=== PATIENT | female | born 1950 | race Two or more races ===

== ENCOUNTER 2022-09-20 09:58 | Outpatient (REF) | payer MEDICARE, MEDICAID, SELFPAY ==
[2022-09-20 11:43] LABS: Hematocrit 38.9 % (37.0-47.0); Hemoglobin 12.7 g/dl (12.0-16.0); Mean Corpuscular HGB Conc 32.6 g/dl (31.0-35.0); Mean Corpuscular Hemoglobin 28.8 pg (27.0-33.0); Mean Corpuscular Volume 88.2 fL (80.0-98.0); Mean Platelet Volume 11.8 fL (9.4-12.3); Platelet Count 203 X10*3/uL (160-400); Red Blood Count 4.41 X10*6/uL (4.20-5.50); White Blood Count 4.9 X10*3/uL (4.8-10.8)
[2022-09-20 12:23] LABS: Microalbum/Creatinine Ratio Ur 5.2 ug/mg cr
[2022-09-20 13:07] LABS: Alanine Aminotransferase 21 U/L (0-31); Alkaline Phosphatase 81 U/L (39-117); Anion Gap 13 (12-20); Aspartate Amino Transferase 23 U/L (5-31); Bilirubin Total 0.5 mg/dL (0.0-1.0); Blood Urea Nitrogen 18 mg/dL (9-16); Calcium 9.7 mg/dL (8.4-10.2); Carbon Dioxide 27 mmol/L (22-29); Chloride 105 mmol/L (96-108); Cholesterol 175 mg/dL; Estimated Glomerular Filt Rate 57; Glucose Fasting 117 mg/dL (60-99); HDL Cholesterol 43 mg/dL; LDL Cholesterol Calculated 114 mg/dl; Potassium 4.2 mmol/L (3.3-5.1); Sodium 141 mmol/L (135-145); Total Protein 7.7 g/dL (6.5-8.0); Triglycerides 90 mg/dL
[2022-09-20 13:19] LABS: TSH reflex Free T4 3.95 uIU/mL (0.32-4.0)
[2022-09-20 13:35] LABS: Folate 17.4 ng/mL (> or = 4.0); Vitamin B12 > 2000 pg/mL (200-900)
== END 2022-09-20 09:59 | disposition home or self-care (01) ==
LOC: HO.LAB 09:58
PROVIDERS: PCP Physician Assistant; Visit Provider Physician Assistant
DX: I10 Essential (primary) hypertension (principal); E53.8 Deficiency of other specified B group vitamins; Z78.9 Other specified health status; R79.89 Other specified abnormal findings of blood chemistry
CPT/HCPCS: 36415; 80053; 80061; 82043; 82607; 82746; 84443; 85027

== ENCOUNTER 2022-11-03 14:00 | Outpatient (RCR) | payer MEDICARE, MEDICAID, SELFPAY ==
--- NOTE | 2022-10-25 13:55 | MHC.PT.EP ---
[facility] [place] Office [place] Office [place] Office [address] Lizama [address] [phone] F: [phone] F: [phone] F: [phone] F: [phone] Physical Therapy Plan of Care Date of Evaluation: Date of Surgery: N/A Diagnosis: Unspecific thoracic, thoraculumbar, and lumbosacral intervertebral disc disorder Bilateral primary osteoarthritis of knee Assessment: Pt is a pleasant 72yo F who presents to PT with B knee and back pain. Her son is present for PT evaluation. She presents to PT with current impairments in pain, decreased ROM, soft tissue restrictions, decreased LE strength, impaired posture, decreased balance and impaired gait. She is limited functionally by walking, bending, prolonged sitting, and stairs. She is a good candidate for skilled PT in order to address current impairments to facilitate return to PLOF. She is recommended to be seen 2x/week for 4 weeks and will be reassessed at that time. 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 Manual therapy to restore motion and function. Therapeutic exercise to improve strength and flexibility. Neuromuscular re-education for posture and balance. Therapeutic activities to return to functional activities of daily living. Electronically signed by: Vandana Hernandez, PT, DPT Please sign and return to therapist. Thank you for your referral.
--- NOTE | 2023-01-11 11:48 | MHC.PT.DC ---
[facility] [place] Office [place] Office [place] Office [address] Joellen Lizama [address] [phone] F: [phone] F: [phone] F: [phone] F: [phone] Physical Therapy Discharge Report Diagnosis: Unspecific thoracic, thoraculumbar, and lumbosacral intervertebral disc disorder Bilateral primary osteoarthritis of knee Date of Surgery: N/A Date of Evaluation: 10/25/22 Date of Discharge: 01/11/23 Treatments to Date: 4 Cancellations to Date: No Shows to Date: Discharge Status: Discharge Summary: Pt was seen for skilled PT from 10/25/22-11/03/22. Her last attended appointment was 11/03/22. At last attended session she was provided updated HEP and bands. She cancelled her remaining appointments as she was going to be out of town. Her chart was held open for 30 days. Pt is being D/C from skilled PT as she has not attended or called to reschedule in > 30 days. Pt current level of function unknown at this time. Electronically signed by: Vandana Hernandez, PT, DPT Please sign and return to therapist. Thank you for your referral.
== END 2023-01-11 11:48 | disposition home or self-care (01) ==
LOC: HO.PT 14:00
PROVIDERS: PCP Physician Assistant; Visit Provider Physician Assistant
DX: M51.9 Unspecified thoracic, thoracolumbar and lumbosacral intervertebral disc disorder (principal); M17.0 Bilateral primary osteoarthritis of knee
CPT/HCPCS: 97110; 97162

== ENCOUNTER 2023-09-15 12:50 | Outpatient (AMB) | payer OTHER, MEDICAID, SELFPAY ==
--- NOTE | 2023-09-15 12:54 | A.OFFPC_ITS ---
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 Accompanied by: Son Allergies iodine Allergy (Severe, Verified 09/15/23 13:10) Anaphylaxis Medication List - Last Reconciled 09/15/23 by Chris Luna PA-C amlodipine 2.5 mg PO DAILY 90 days betamethasone dipropionate 0.05% 1 appl topical BID hydrochlorothiazide 12.5 mg PO DAILY 90 days irbesartan 150 mg PO DAILY 90 days levothyroxine (Synthroid) 25 mcg PO DAILY meloxicam 15 mg PO DAILY 30 days Tobacco use date assessed: 09/15/23 Fall risk assessment: No Falls in past year Last assessed Fall Risk: 09/15/23 Dental Screening Dental Screen Date: 09/15/23 Did you have a dental visit in the last 12 months?: Yes Did you have a dental problem in the last 6 months where you did not have access to dental care?: No Was dental information given to patient?: Patient has dentist HPI PE HPI Details Patient is a 73-year-old female here today for a routine annual physical Patient has a past medical history significant for osteoarthritis of the knee and shoulders, hypertension, vegetarian. .. HTN: Does monitor at home and has been mostly controlled on meds. Blood pressure today in office acceptable .. Impaired glucose metabolism: Most recent labs showing elevated fasting blood sugar 117. Today's A1c of 5.8. She will continue on lifestyle modifications and dietary modifications. . Polyarthralgia: Does have significant bilateral hand/ wrist, knees and shoulders arthritis that causes significant impairment in her activities of daily living. Family asking for [employer] your patient does use anti-inflammatory medication for pain. She does have some balance issues due to her bilateral knee osteoarthritis. She is interested in handicap placard due to her arthritis. At times does use a cane for balance. .. Colon cancer screening; needs colon cancer screening-willing to do Cologuard Mammogram: NEEDS MAMMOGRAM- declines Vaccines: Needs tetanus though declines, needs pneumonia vaccine though declines as well. Laboratory Tests 09/20/22 10:14 Fasting Glucose 117 H LDL Cholesterol, C alc 114 Vitamin B12 > 2000 H [facility] Social History (Updated 09/15/23 @ 13:16 by hCris Luna PA-C) Housing: House Alcohol intake: never Patient Tobacco Use Status: Never used Tobacco e-Cigarette/Vaping Use: Never Used service: No Current occupational status: retired Current occupation: [employer] Current occupational exposures/hazards: No Cognitive needs: No Hearing needs: No Vision needs: Yes Questionnaire PHQ-9 Over the last 2 weeks, how often have you been bothered by any of the following problems? 1. Little interest or pleasure in doing things: not at all 2. Feeling down, depressed, or hopeless: not at all 3. Trouble falling or staying asleep, or sleeping too much: not at all 4. Feeling tired or having little energy: not at all 5. Poor appetite or overeating: not at all 6. Feeling bad about yourself - or that you are a failure or have let yourself or your family down: not at all 7. Trouble concentrating on things, such as reading the newspaper or watching television: not at all 8. Moving or speaking so slowly that other people could have noticed. Or the opposite - being so fidgety or restless that you have been moving around a lot more than usual: not at all 9. Thoughts that you would be better off or of hurting yourself in some way: not at all Total score: 0 Depression Screening Interpretation: Negative Depression Screening Done: Yes 43279 - PHQ-9 Billing: Yes Source: Developed by Drs. Luis Vega, Megan Adame, Mikey Antonio and colleagues, with an educational cesar from [employer]. Thrive Questionnaire Date Thrive assessed: 09/15/23 I am a: Patient What is your living situation today?: I have a steady place to live Within the past 12 months, did the food you bought not last and you didn't have the money to get more?: Never true Within the past 12 months, did you worry whether your food would run out before you got money to buy more?: Never true Do you have trouble paying for medicines?: No Do you have trouble getting transportation to medical appointments?: No Do you have trouble taking care of your child, family member or friend?: No Do you have trouble with day-to-day activities such as bathing, preparing meals, shopping, managing finances, etc.?: No Are you currently unemployed and looking for a job?: No Are you interested in more education?: No Please select the resources that you would like help with: None Currently or been in a relationship where the following occur: no concerns reported THRIVE Score: 0 AUDIT C Alcohol Use Questionnaire (AUDIT-C) 1. How often do you have a drink containing alcohol?: Never 3. How often do you have six or more drinks on one occasion?: Never Total Score: 0 ROSIO-7 AMB Questionnaire ROSIO-7 Date ROSIO - 7 assessed: 09/15/23 Feeling nervous, anxious, or on edge: 0 = Not at all Not being able to stop or control worryin = Not at all Worrying too much about different things: 0 = Not at all Trouble relaxin = Not at all Being so restless that it is hard to sit still: 0 = Not at all Becoming easily annoyed or irritable: 0 = Not at all Feeling afraid as if something awful might happen: 0 = Not at all Total ROSIO-7 score (0-4 normal; 5-9 mild; 10-14 moderate; 15-21 severe): 0 Source: Developed by Drs. Luis Vega, Megan Adame, Mikey Antonio and colleagues, with an educational cesar from [employer]. ROSIO-7 Assessment Billing ROSIO-7 Assessment Tool: ROSIO-7 Assessment 30012 Review of Systems Const Denies body aches, Denies chills, Denies excessive sweating, Denies fatigue, Denies fever(s) and Denies headache(s) Eyes Denies blurry vision ENT Denies dysphagia, Denies vertigo, Denies dizziness, Denies headache(s), Denies hearing loss and Denies tinnitus Card Denies chest pain, Denies chest pain with activity, Denies syncope, Denies irregular heart rhythm and Denies dyspnea Resp Denies chest congestion, Denies cough, Denies hemoptysis, Denies dyspnea and Denies wheezing GI Denies abdominal pain, Denies melena, Denies hematochezia, Denies coffee ground emesis, Denies dysphagia, Denies diarrhea, Denies nausea and Denies vomiting Denies urinary frequency, Denies dysuria, Denies urinary hesitancy and Denies urinary urgency Musc Denies arthralgias, Denies limited range of motion, Denies muscle cramps and Denies muscle weakness Skin/Breast Denies rash and Denies skin ulcer Neuro Denies Abnormal speech present, Denies confusion, Denies vertigo, Denies dizziness, Denies syncope, Denies headache(s), Denies memory loss and Denies seizure-like activity Psych Denies anxiety, Denies confusion, Denies depression, Denies memory loss, Denies panic attacks and Denies paranoia Endo Denies excessive sweating, Denies fatigue, Denies flushing, Denies polydipsia and Denies polyuria Aller/Immun Denies wheezing Physical exam (Primary Care) Vital Signs: Last Vital Signs Pulse 69 09/15/23 12:56 BP 128/74 09/15/23 12:56 Pulse Ox 99 09/15/23 12:56 Oxygen Delivery Method Room Air 09/15/23 12:56 BMI result Body Mass Index 29.0 Tobacco/Smoking Status: Tobacco use Status Tobacco use date assessed 09/15/23 09/15/23 13:13 Patient Tobacco Use Status Never used Tobacco 09/15/23 13:16 e-Cigarette/Vaping Use Never Used 09/15/23 13:16 PHQ-9: PHQ-9 Score PHQ-9: Total score 0 09/15/23 13:13 Depression Screening Interpretation: Negative Thrive Assessment: Date of Thrive Assessment Date Thrive assessed 09/15/23 09/15/23 13:13 Currently or been in a relationship where the following occur: no concerns reported Const General: cooperative, comfortable, no acute distress, alert and awake; No confusion Orientation/consciousness: oriented to person, oriented to place, patient oriented x3 and No confusion HENMT Head: Yes normocephalic Ears: external ears normal and TM's normal bilaterally Face and sinus: No sinus tenderness Mouth: Normal oral and palatal mucosa present and tongue normal Teeth and gingiva: dentition normal and gingiva normal Throat: Yes posterior oropharynx normal, Yes tonsils normal and Yes uvula midline Eyes Conjunctivae: conjunctivae normal Sclerae: sclerae normal Pupils: Equal, round and reactive pupils present EOM: EOMs intact bilaterally Direct Ophthalmoscopy: No no photophobia Neck Neck: Yes no lymphadenopathy, No tender and Yes no JVD Thyroid: Thyroid normal Carotids: no bruits Chest Chest palpation & inspection: no tenderness Resp Effort & Inspection: normal respiratory effort, no audible wheezes, not labored and no stridor Auscultation: no crackles, no rales, no rhonchi and no wheezes Cardio Jugular venous distension: no JVD Rate: regular rate, not bradycardic and not tachycardic Rhythm: regular rhythm Bruits: no carotid bruits Peripheral pulses: Peripheral pulses 2+ throughout GI Inspection: Yes normal to inspection, No abdominal wall ecchymosis and No visible herniation Palpation (GI): Soft to palpation, nontender, no guarding, not rigid and No hepatosplenomegaly present Auscultation: normoactive bowel sounds General: Yes no CVA tenderness Back/Spine/Pelvis Back: no CVA tenderness and No back tenderness Cervical Spine: cervical ROM normal Thoracic/Lumbar Spine: thoracic and lumbar spine normal to inspection, straight leg raise negative bilaterally, No thoraco-lumbar ROM limited and No lumbar spinal tenderness Skin Lesions: no lesions Rashes: no rashes Wounds: no wounds Neuro General: oriented to person, oriented to place, patient oriented x3, CN's II-XI intact bilaterally and No confusion Cranial nerves: Yes Equal, round and reactive pupils present and Yes Normal accommodation reflex present Cognition (Neuro): normal cognition Speech: No Abnormal speech present Gait exam (Neuro): Normal gait present Motor exam (neuro): 5/5 motor strength present throughout Extrem Right upper extremity: full ROM; no cyanosis Left upper extremity: full ROM; no cyanosis Right lower extremity: no edema Left lower extremity: no edema Psych Appearance: grossly normal Mental Status: mental status grossly normal Affect: normal affect Attitude: cooperative Thought process: Normal thought process present Results AMB Hemoglobin A1c AMB Hemoglobin A1c 5.8 % Last Edit by ANSELMO Bowman on 09/15/23 13:20 Assessment and Plan Assessment & Plan (1) Annual physical exam: Code(s): Z00.00 - Encounter for general adult medical examination without abnormal findings (2) HTN (hypertension): Code(s): I10 - Essential (primary) hypertension Qualifiers: Hypertension type: primary hypertension Qualified Code(s): I10 - Essential (primary) hypertension Plan: Blood pressure today in office acceptable. Continues on for 3 different medications for blood pressure to which she reports has been managing her blood pressure well. Goal blood pressure be below 140/90 (3) Osteoarthritis: Code(s): M19.90 - Unspecified osteoarthritis, unspecified site Qualifiers: Osteoarthritis location: knee Osteoarthritis type: primary Laterality: bilateral Qualified Code(s): M17.0 - Bilateral primary osteoarthritis of knee Plan: Does have bilateral knee osteoarthritis causing her to have some balance impairment. She is willing to do physical therapy/. (4) Elevated fasting blood sugar: Code(s): R73.01 - Impaired fasting glucose Plan: Labs from [place] showing elevated in fasting blood sugar and A1c of 5.8. Not interested in medication at this time will continue working on lifestyle modifications. (5) Vegetarian diet: Code(s): Z78.9 - Other specified health status Plan: Will continue to follow vitamin B12 as patient is strict vegan. (6) Hypothyroidism: Code(s): E03.9 - Hypothyroidism, unspecified Qualifiers: Hypothyroidism type: unspecified Qualified Code(s): E03.9 - Hypothyroidism, unspecified Plan: She reports seeing a physician in [place]. Reports having an TSH of 5.8. She was placed on levothyroxine 25 mcg. Will continue to follow TSH. (7) Injury of right glenoid labrum: Code(s): S49.91XA - Unspecified injury of right shoulder and upper arm, initial encounter Plan: She reports in May injuring her right shoulder in the posterior aspect. She did get MRI that did show some glenoid fluid collection. She reports after the incident her range of motion was severely impaired though now is much better. She is interested in physical therapy. Orders: Orders AMB Hemoglobin A1c Today Z13.1 - Encounter for screening for diabetes mellitus TSH reflex Free T4 Today E03.9 - Hypothyroidism, unspecified Microalbumin, Random (w Creat) Today I10 - Essential (primary) hypertension Vitamin B12 and Folate Today E53.8 - Deficiency of other specified B group vitamins, Z78.9 - Other specified health status PT Evaluation and Treatment Today S49.91XA - Unspecified injury of right shoulder and upper arm, initial encounter [facility] [place]. Panel Fast Today I10 - Essential (primary) hypertension Complete Blood Count no Diff Today M17.0 - Bilateral primary osteoarthritis of knee Vitamin D 25-OH Total Today Z78.9 - Other specified health status Referrals Cologuard Test S49.91XA - Unspecified injury of right shoulder and upper arm, initial encounter, Z12.11 - Encounter for screening for malignant neoplasm of colon Patient Instructions: Goal: Blood pressure to remain below 140/90 Barriers: Adherence to physical activity . Coding Level of Care Code Est Pt Prev Care >65y(27916) Diagnoses Annual physical exam Z00.00 Primary hypertension I10 Hypertension type: primary hypertension Primary osteoarthritis of both knees M17.0 Osteoarthritis location: knee Osteoarthritis type: primary Laterality: bilateral Elevated fasting blood sugar R73.01 Vegetarian diet Z78.9 Hypothyroidism, unspecified type E03.9 Hypothyroidism type: unspecified Injury of right glenoid labrum S49.91XA Additional Codes ROSIO-7 Assessment Billing - ROSIO-7 Assessment Tool: ROSIO-7 Assessment 92604 ([id number])
[2023-09-15 12:56] VITALS: BP 128/74; PULSE 69; O2SAT 99; BMI 29.0
== END 2023-09-15 13:40 | disposition home or self-care (01) ==
PROVIDERS: PCP Physician Assistant; Visit Provider Physician Assistant
DX: Z00.00 Encounter for general adult medical examination without abnormal findings (principal); I10 Essential (primary) hypertension; M17.0 Bilateral primary osteoarthritis of knee; R73.01 Impaired fasting glucose; E03.9 Hypothyroidism, unspecified; S49.91XA Unspecified injury of right shoulder and upper arm, initial encounter
CPT/HCPCS: 83036; 99397

== ENCOUNTER 2023-09-16 10:10 | Outpatient (REF) | payer OTHER, MEDICAID, SELFPAY ==
[2023-09-16 10:58] LABS: Hematocrit 38.2 % (37.0-47.0); Hemoglobin 12.5 g/dl (12.0-16.0); Mean Corpuscular HGB Conc 32.7 g/dl (31.0-35.0); Mean Corpuscular Hemoglobin 28.7 pg (27.0-33.0); Mean Corpuscular Volume 87.6 fL (80.0-98.0); Mean Platelet Volume 11.5 fL (9.4-12.3); Platelet Count 207 X10*3/uL (160-400); Red Blood Count 4.36 X10*6/uL (4.20-5.50); Red Cell Distribution Width 13.6 % (11.0-16.0); White Blood Count 4.5 X10*3/uL (4.8-10.8)
[2023-09-16 12:01] LABS: Alanine Aminotransferase 22 U/L (0-31); Albumin Level 4.2 g/dL (3.5-5.0); Alkaline Phosphatase 74 U/L (39-117); Anion Gap 13 (12-20); Aspartate Amino Transferase 23 U/L (5-31); Bilirubin Total 0.6 mg/dL (0.0-1.0); Blood Urea Nitrogen 13 mg/dL (9-16); Calcium 9.6 mg/dL (8.4-10.2); Carbon Dioxide 25 mmol/L (22-29); Chloride 108 mmol/L (96-108); Estimated Glomerular Filt Rate > 60; Glucose Fasting 112 mg/dL (60-99); Sodium 142 mmol/L (135-145); Total Protein 7.8 g/dL (6.5-8.0)
[2023-09-16 12:20] LABS: Folate 11.7 ng/mL (> or = 4.0); Vitamin B12 1197 pg/mL (200-900)
[2023-09-16 12:24] LABS: Vitamin D 25-OH Total 52.4 ng/mL (>30)
[2023-09-16 13:05] LABS: Creatinine Urine 177.63 mg/dL; Microalbum/Creatinine Ratio Ur 10.6 ug/mg cr (<30)
== END 2023-09-16 10:11 | disposition home or self-care (01) ==
LOC: HO.LAB 10:10
PROVIDERS: PCP Physician Assistant; Visit Provider Physician Assistant
DX: M17.0 Bilateral primary osteoarthritis of knee (principal); Z78.9 Other specified health status; E03.9 Hypothyroidism, unspecified; I10 Essential (primary) hypertension; E53.8 Deficiency of other specified B group vitamins
CPT/HCPCS: 36415; 80053; 82043; 82306; 82570; 82607; 82746; 84443; 85027

== ENCOUNTER 2023-10-12 16:00 | Outpatient (RCR) | payer MEDICARE, MEDICAID, SELFPAY ==
--- NOTE | 2023-09-30 11:00 | MHC.PT.EP ---
[facility] [place] Office [place] Office [place] Office [address] Joellen Lizama [address] [phone] F: [phone] F: [phone] F: [phone] F: [phone] Physical Therapy Plan of Care Date of Evaluation: 09/30/23 Date of Surgery: N/A Diagnosis: injury of R glenoid labrum (RL) Assessment: pt is a 73 y/o female presenting to physical therapy w/ referring diagnosis of injury of R glenoid labrum. I feel she has more extensive soft tissue injury given her poor AROM and significant compensatory patterns. Her prognosis for now is poor given she can only commit to 2 weeks of PT (her son is moving and she will go with him). I feel she needs at least 6 weeks to notice any change in her function. We will attempt to remediate her impairments in the time given; however, I do not anticipate this short time period will change much for her. Impairments include pain, decreased range of motion, decreased strength, impaired functional mobility, impaired postural awareness, and altered ambulation mechanics. pt is a poor candidate for skilled PT due to age, potential remediation of impairments, typical disease/condition progression and prognosis, comorbidities, and motivation. pt would benefit from skilled PT intervention to provide a tailored strengthening and stretching exercise program, functional training, gait training, postural re-training, neuromuscular re-education, modalities as needed for pain, equipment safety demonstration. Frequency and Duration: The patient will be seen 2x/wk for 3 wks Short Term Goals: pt will be I w/ HEP to promote self-management of condition. pt will improve R shoulder flexion AROM by 10 degrees to promote ease in overhead reaching. 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 pt will report a statistically significant improvement in self-reported outcome measure, SPADI, to promote return to PLOF. Treatment Plan: Modalities to reduce pain, spasms and effusion. Manual therapy to restore motion and function. Therapeutic exercise to improve strength and flexibility. Neuromuscular re-education for posture and balance. Therapeutic activities to return to functional activities of daily living. Electronically signed by: Savanna Madrigal PT, DPT Please sign and return to therapist. Thank you for your referral.
--- NOTE | 2023-11-03 13:52 | MHC.PT.DC ---
[facility] [place] Office [place] Office [place] Office [address] Joellen Lizama [address] [phone] F: [phone] F: [phone] F: [phone] F: [phone] Physical Therapy Discharge Report Diagnosis: injury of R glenoid labrum (RL) Date of Surgery: N/A Date of Evaluation: 09/30/23 Date of Discharge: 11/03/23 Treatments to Date: 3 Cancellations to Date: 0 No Shows to Date: 0 Discharge Status: Independent with HEP Recommend MD Follow-up Discharge Summary: The patient brought in a copy of her MRI report and given the findings there I did not anticipate she was going to make any significant progress in PT in the short time she had here. pt is moving away from area and has completed a total of 3 visits. We reviewed her complete program and she was given handout and YTB. She was given the opportunity to ask questions and they were answered to the best of her ability. She is discharged at this time. I encouraged her to try these exercises for 3-4 weeks and to seek out PT wherever she is at that time. pt verbalized understanding. Electronically signed by: Savanna Madrigal PT, DPT Please sign and return to therapist. Thank you for your referral.
== END 2023-11-03 13:53 | disposition home or self-care (01) ==
LOC: HO.PT 16:00
PROVIDERS: PCP Physician Assistant; Visit Provider Physician Assistant
DX: S49.91XD Unspecified injury of right shoulder and upper arm, subsequent encounter (principal)
CPT/HCPCS: 97110; 97162

== ENCOUNTER 2024-10-18 13:18 | Outpatient (AMB) | payer MEDICARE, MEDICAID, SELFPAY ==
--- NOTE | 2024-10-18 13:33 | MHC.PC.OV ---
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 Accompanied by: Self / Same As Patient Allergies iodine Allergy (Severe, Verified 10/18/24 13:47) Anaphylaxis Medication List - Last Reconciled 10/18/24 by Chris Luna PA-C amlodipine 2.5 mg PO DAILY 90 days betamethasone dipropionate 0.05% 1 appl topical BID PRN 30 days irbesartan-hydrochlorothiazide 150-12.5 mg 1 tab PO DAILY levothyroxine (Synthroid) 25 mcg PO DAILY 30 days meloxicam 15 mg PO DAILY 30 days Tobacco use date assessed: 10/18/24 Fall risk assessment: No Falls in past year Last assessed Fall Risk: 10/18/24 Dental Screening Dental Screen Date: 10/18/24 Did you have a dental visit in the last 12 months?: Yes Did you have a dental problem in the last 6 months where you did not have access to dental care?: No Was dental information given to patient?: Patient has dentist HPI PE HPI Details Patient is a 74-year-old female here today for a routine annual physical Patient has a past medical history significant for osteoarthritis of the knee and shoulders, hypertension, vegetarian. Concern--> The patient reports a possible allergy to dog saliva, which she suspects after experiencing severe symptoms when exposed to her brother's dog. She plans to use antihistamines like Claritin or Zyrtec before and during exposure to prevent allergic reactions. Status post right shoulder arthroplasty: She underwent shoulder arthroplasty in March in [place], which has resulted in limited range of motion despite some physical therapy. The patient reports intermittent pain in the shoulder, which is better than before the surgery but not optimal. .. HTN: Does monitor at home and has been mostly controlled on meds. Blood pressure today in office acceptable .. Impaired glucose metabolism: Most recent labs showing elevated fasting blood sugar 117. Most recent A1c of 5.8. She will continue on lifestyle modifications and dietary modifications. . Polyarthralgia: Does have significant bilateral hand/ wrist, knees and shoulders arthritis that causes significant impairment in her activities of daily living. She does have some balance issues due to her bilateral knee osteoarthritis. She is interested in handicap placard due to her arthritis. At times does use a cane for balance. .. Colon cancer screening; Cologuard done in 2023 Mammogram: NEEDS MAMMOGRAM- declines Vaccines: Needs tetanus though declines, needs pneumonia vaccine though declines as well. Laboratory Tests 09/20/22 10:14 Fasting Glucose 117 H LDL Cholesterol, C alc 114 Vitamin B12 > 2000 H [facility] Social History Housing: House Alcohol intake: never Patient Tobacco Use Status: Never used Tobacco e-Cigarette/Vaping Use: Never Used service: No Current occupational status: retired Current occupation: [employer] Current occupational exposures/hazards: No Cognitive needs: No Hearing needs: No Vision needs: Yes Questionnaire PHQ-9 Over the last 2 weeks, how often have you been bothered by any of the following problems? 1. Little interest or pleasure in doing things: several days 2. Feeling down, depressed, or hopeless: several days 3. Trouble falling or staying asleep, or sleeping too much: several days 4. Feeling tired or having little energy: several days 5. Poor appetite or overeating: not at all 6. Feeling bad about yourself - or that you are a failure or have let yourself or your family down: not at all 7. Trouble concentrating on things, such as reading the newspaper or watching television: not at all 8. Moving or speaking so slowly that other people could have noticed. Or the opposite - being so fidgety or restless that you have been moving around a lot more than usual: more than half the days 9. Thoughts that you would be better off or of hurting yourself in some way: not at all Total score: 6 Depression Screening Interpretation: Positive Depression Screening Follow-up: Existing condition Depression Screening Done: Yes 90035 - PHQ-9 Billing: Yes Source: Developed by Drs. Luis Vega, Megan Adame, Mikey Antonio and colleagues, with an educational cesar from [employer]. Thrive Questionnaire Date Thrive assessed: 10/18/24 I am a: Patient What is your living situation today?: I have a steady place to live Within the past 12 months, did the food you bought not last and you didn't have the money to get more?: I choose not to answer this question Within the past 12 months, did you worry whether your food would run out before you got money to buy more?: I choose not to answer this question Do you have trouble paying for medicines?: Yes Do you have trouble getting transportation to medical appointments?: Yes Do you have trouble paying your heating and electricity bill?: Yes Do you have trouble taking care of your child, family member or friend?: No Do you have trouble with day-to-day activities such as bathing, preparing meals, shopping, managing finances, etc.?: Yes Are you currently unemployed and looking for a job?: No Are you interested in more education?: No Please select the resources that you would like help with: Paying for medicine and Utilities Currently or been in a relationship where the following occur: No concerns reported THRIVE Score: 2 AUDIT C Alcohol Use Questionnaire (AUDIT-C) 1. How often do you have a drink containing alcohol?: Never 3. How often do you have six or more drinks on one occasion?: Never Total Score: 0 ROSIO-7 AMB Questionnaire ROSIO-7 Date ROSIO - 7 assessed: 10/18/24 Feeling nervous, anxious, or on edge: 1 = Several days Not being able to stop or control worryin = Not at all Worrying too much about different things: 1 = Several days Trouble relaxin = Several days Being so restless that it is hard to sit still: 0 = Not at all Becoming easily annoyed or irritable: 1 = Several days Feeling afraid as if something awful might happen: 0 = Not at all Total ROSIO-7 score (0-4 normal; 5-9 mild; 10-14 moderate; 15-21 severe): 4 Source: Developed by Drs. Luis Vega, Megan Adame, Mikey Antonio and colleagues, with an educational cesar from [employer]. Review of Systems Const Denies body aches, Denies chills, Denies excessive sweating, Denies fatigue, Denies fever(s) and Denies headache(s) Eyes Denies blurry vision ENT Denies dysphagia, Denies vertigo, Denies dizziness, Denies headache(s), Denies hearing loss and Denies tinnitus Card Denies chest pain, Denies chest pain with activity, Denies syncope, Denies irregular heart rhythm and Denies dyspnea Resp Denies chest congestion, Denies cough, Denies hemoptysis, Denies dyspnea and Denies wheezing GI Denies abdominal pain, Denies melena, Denies hematochezia, Denies coffee ground emesis, Denies dysphagia, Denies diarrhea, Denies nausea and Denies vomiting Denies urinary frequency, Denies dysuria, Denies urinary hesitancy and Denies urinary urgency Musc Reports arthralgias, Denies limited range of motion, Denies muscle cramps and Denies muscle weakness Skin/Breast Denies rash and Denies skin ulcer Neuro Denies Abnormal speech present, Denies confusion, Denies vertigo, Denies dizziness, Denies syncope, Denies headache(s), Denies memory loss and Denies seizure-like activity Psych Denies anxiety, Denies confusion, Denies depression, Denies memory loss, Denies panic attacks and Denies paranoia Endo Denies excessive sweating, Denies fatigue, Denies flushing, Denies polydipsia and Denies polyuria Aller/Immun Denies wheezing Physical exam (Primary Care) Vital Signs: Last Vital Signs Pulse 78 10/18/24 13:34 BP 130/82 10/18/24 13:34 Pulse Ox 98 10/18/24 13:34 Oxygen Delivery Method Room Air 10/18/24 13:34 BMI result Body Mass Index 28.3 Tobacco/Smoking Status: Tobacco use Status Tobacco use date assessed 10/18/24 10/18/24 13:40 Patient Tobacco Use Status Never used Tobacco 10/18/24 13:40 e-Cigarette/Vaping Use Never Used 10/18/24 13:40 PHQ-9: PHQ-9 Score PHQ-9: Total score 6 10/18/24 13:48 Depression Screening Interpretation: Positive Depression Screening Follow-up: Existing condition Thrive Assessment: Date of Thrive Assessment Date Thrive assessed 10/18/24 10/18/24 13:40 Currently or been in a relationship where the following occur: No concerns reported Const General: cooperative, comfortable, no acute distress, alert and awake; No confusion Orientation/consciousness: oriented to person, oriented to place, patient oriented x3 and No confusion HENMT Head: Yes normocephalic Ears: external ears normal and TM's normal bilaterally Face and sinus: No sinus tenderness Mouth: Normal oral and palatal mucosa present and tongue normal Teeth and gingiva: dentition normal and gingiva normal Throat: Yes posterior oropharynx normal, Yes tonsils normal and Yes uvula midline Eyes Conjunctivae: conjunctivae normal Sclerae: sclerae normal Pupils: Equal, round and reactive pupils present EOM: EOMs intact bilaterally Direct Ophthalmoscopy: No no photophobia Neck Neck: Yes no lymphadenopathy, No tender and Yes no JVD Thyroid: Thyroid normal Carotids: no bruits Chest Chest palpation & inspection: no tenderness Resp Effort & Inspection: normal respiratory effort, no audible wheezes, not labored and no stridor Auscultation: no crackles, no rales, no rhonchi and no wheezes Cardio Jugular venous distension: no JVD Rate: regular rate, not bradycardic and not tachycardic Rhythm: regular rhythm Bruits: no carotid bruits Peripheral pulses: Peripheral pulses 2+ throughout GI Inspection: Yes normal to inspection, No abdominal wall ecchymosis and No visible herniation Palpation (GI): Soft to palpation, nontender, no guarding, not rigid and No hepatosplenomegaly present Auscultation: normoactive bowel sounds General: Yes no CVA tenderness Back/Spine/Pelvis Back: no CVA tenderness and No back tenderness Cervical Spine: cervical ROM normal Thoracic/Lumbar Spine: thoracic and lumbar spine normal to inspection, straight leg raise negative bilaterally, No thoraco-lumbar ROM limited and No lumbar spinal tenderness Skin Lesions: no lesions Rashes: no rashes Wounds: no wounds Neuro General: oriented to person, oriented to place, patient oriented x3, CN's II-XI intact bilaterally and No confusion Cranial nerves: Yes Equal, round and reactive pupils present and Yes Normal accommodation reflex present Cognition (Neuro): normal cognition Speech: No Abnormal speech present Gait exam (Neuro): Normal gait present Motor exam (neuro): 5/5 motor strength present throughout Extrem Right upper extremity: full ROM; no cyanosis Left upper extremity: full ROM; no cyanosis Right lower extremity: no edema Left lower extremity: no edema Psych Appearance: grossly normal Mental Status: mental status grossly normal Affect: normal affect Attitude: cooperative Thought process: Normal thought process present Coding Level of Care Code Est Pt Prev Care >65y(15435) Diagnoses Annual physical exam Z00.00 Primary hypertension I10 Hypertension type: primary hypertension Hypothyroidism, unspecified type E03.9 Hypothyroidism type: unspecified Primary osteoarthritis of both knees M17.0 Laterality: bilateral Osteoarthritis location: knee Osteoarthritis type: primary Primary osteoarthritis of right knee M17.11 Osteoarthritis type: primary Additional Codes PHQ-9 - 91760 - PHQ-9 Billing: Yes ([id number]) Assessment & Plan Assessment & Plan (1) Annual physical exam: Code(s): Z00.00 - Encounter for general adult medical examination without abnormal findings Category: Medical Plan: As per HPI (2) HTN (hypertension): Code(s): I10 - Essential (primary) hypertension Category: Medical Qualifiers: Hypertension type: primary hypertension Qualified Code(s): I10 - Essential (primary) hypertension Plan: Blood pressure acceptable today in office, will continue current dose of antihypertensive medication with goal blood pressure to be below 140/90 (3) Hypothyroidism: Code(s): E03.9 - Hypothyroidism, unspecified Category: Medical Qualifiers: Hypothyroidism type: unspecified Qualified Code(s): E03.9 - Hypothyroidism, unspecified Plan: Most recent TSH stable. Will continue her current dose of levothyroxine 25 mcg. Will recheck TSH to ensure normal. (4) Osteoarthritis: Code(s): M19.90 - Unspecified osteoarthritis, unspecified site Category: Medical Qualifiers: Laterality: bilateral Osteoarthritis location: knee Osteoarthritis type: primary Qualified Code(s): M17.0 - Bilateral primary osteoarthritis of knee Plan: The patient has osteoarthritis with significant symptoms in her knees, described as [id number] arthritis. She experiences difficulty in walking and requires medication for knee pain, including meloxicam, which provides variable relief. The patient is considering the use of tramadol for more severe pain episodes. (5) Osteoarthritis of right knee: Code(s): M17.11 - Unilateral primary osteoarthritis, right knee Category: Medical Qualifiers: Osteoarthritis type: primary Qualified Code(s): M17.11 - Unilateral primary osteoarthritis, right knee Plan: Has a above Advised to consider physical therapy for her knee Orders: Orders Comprehensive [place]. Panel Fast 10/22/24 I10 - Essential (primary) hypertension XR knee RT 3V 10/22/24 M17.11 - Unilateral primary osteoarthritis, right knee TSH reflex Free T4 10/22/24 E03.9 - Hypothyroidism, unspecified Complete Blood Count no Diff 10/22/24 I10 - Essential (primary) hypertension Medications: New tramadol 50 mg PO DAILY 7 tabs 0RF 7 days M17.11 - Unilateral primary osteoarthritis, right knee melatonin 3 mg PO BEDTIME 30 caps 1RF sleep 30 days G47.00 - Insomnia, unspecified irbesartan-hydrochlorothiazide 150-12.5 mg 1 tab PO DAILY 90 tabs 1RF 90 days I10 - Essential (primary) hypertension [travel wheelchair] As directed 1 ea 0RF M17.11 - Unilateral primary osteoarthritis, right knee loratadine (Allergy Relief (loratadine)) 10 mg PO DAILY 30 tabs 2RF 30 days T78.40XA - Allergy, unspecified, initial encounter Refilled amlodipine 2.5 mg PO DAILY 90 tabs 1RF 90 days I10 - Essential (primary) hypertension levothyroxine (Synthroid) 25 mcg PO DAILY 30 tabs 3RF 30 days E03.9 - Hypothyroidism, unspecified meloxicam 15 mg PO DAILY 30 tabs 1RF 30 days M17.0 - Bilateral primary osteoarthritis of knee
[2024-10-18 13:34] VITALS: BP 130/82; PULSE 78; O2SAT 98; BMI 28.3
== END 2024-10-18 14:18 | disposition home or self-care (01) ==
LOC: HO.HMCH 13:19
PROVIDERS: PCP Physician Assistant; Visit Provider Physician Assistant
DX: Z00.00 Encounter for general adult medical examination without abnormal findings (principal); I10 Essential (primary) hypertension; E03.9 Hypothyroidism, unspecified; M17.0 Bilateral primary osteoarthritis of knee; M17.11 Unilateral primary osteoarthritis, right knee

== ENCOUNTER → 2024-10-18 13:18 | Outpatient (BNVA) | payer MEDICARE, MEDICAID, SELFPAY | PROVIDERS: PCP Physician Assistant; Visit Provider Physician Assistant | DX: Z00.00 Encounter for general adult medical examination without abnormal findings (principal); I10 Essential (primary) hypertension; E03.9 Hypothyroidism, unspecified; M17.0 Bilateral primary osteoarthritis of knee; Z79.899 Other long term (current) drug therapy; Z13.31 Encounter for screening for depression; Z13.39 Encounter for screening examination for other mental health and behavioral disorders | CPT/HCPCS: 96127; 99397 ==

== ENCOUNTER 2024-10-22 10:23 | Outpatient (REF) | payer MEDICARE, MEDICAID, SELFPAY ==
--- NOTE | ~2024-10-22 | XR_ITS ---
EXAMINATION: XR KNEE 3 VIEWS RIGHT HISTORY: M17.11 - Unilateral primary osteoarthritis, right knee COMPARISON: There are no prior studies available for comparison. FINDINGS: Four views of the right knee are submitted. Osseous mineralization is normal. There is no fracture or dislocation. There is severe osteoarthritis of the medial compartment and mild to moderate osteoarthritis of the patellofemoral compartment, with joint space narrowing and osteophyte formation. The soft tissues are unremarkable. There is no joint effusion. XR/XR knee RT 3V IMPRESSION: Osteoarthritis of the right knee as described. Electronically signed by: Luis De Leon MD 10/22/2024 11:39 AM EDT
[2024-10-22 10:47] LABS: Hematocrit 36.5 % (37.0-47.0); Hemoglobin 11.6 g/dl (12.0-16.0); Mean Corpuscular HGB Conc 31.8 g/dl (31.0-35.0); Mean Corpuscular Hemoglobin 28.0 pg (27.0-33.0); Mean Corpuscular Volume 88.2 fL (80.0-98.0); NRBC Abs Auto 0.000 X10*3/uL (0.0-0.012); NRBC Pct Auto 0.0 /100WBC (0.0-0.2); Platelet Count 194 X10*3/uL (160-400); Red Blood Count 4.14 X10*6/uL (4.20-5.50); White Blood Count 5.3 X10*3/uL (4.8-10.8)
[2024-10-22 11:50] LABS: Alanine Aminotransferase 18 U/L (0-31); Albumin Level 4.4 g/dL (3.5-5.0); Alkaline Phosphatase 83 U/L (39-117); Anion Gap 11 (12-20); Aspartate Amino Transferase 19 U/L (5-31); Blood Urea Nitrogen 19 mg/dL (9-16); Calcium 9.2 mg/dL (8.4-10.2); Carbon Dioxide 26 mmol/L (22-29); Chloride 110 mmol/L (96-108); Estimated Glomerular Filt Rate > 60; Potassium 4.3 mmol/L (3.3-5.1); Sodium 143 mmol/L (135-145); Total Protein 7.7 g/dL (6.5-8.0)
== END 2024-10-22 10:24 | disposition home or self-care (01) ==
LOC: HO.LAB 10:23
PROVIDERS: PCP Physician Assistant; Visit Provider Physician Assistant
DX: I10 Essential (primary) hypertension (principal); M17.11 Unilateral primary osteoarthritis, right knee; E03.9 Hypothyroidism, unspecified
CPT/HCPCS: 36415; 73562; 80053; 84443; 85027

== ENCOUNTER → 2024-10-22 10:34 | Outpatient (BNV) | payer MEDICARE, MEDICAID, SELFPAY | PROVIDERS: PCP Physician Assistant; Visit Provider Radiology Diagnostic Radiology | DX: M17.11 Unilateral primary osteoarthritis, right knee (principal) | CPT/HCPCS: 73562 ==